=== PATIENT | male | born 1950 | race Caucasian/White ===

== ENCOUNTER → 2021-01-02 | Outpatient (CLI) | payer MEDICARE ==
[~2021-01-02] MED LIST: AMBIEN CR PO; AMLO5 PO; Aspir 8181 MG PO; CYCL10 PO; Cyclobenzaprine5 MG PO; KETO10 PO; METO50ER; Norco 5-325 Ta1 EACH PO; ROSU10TA; SIMV10 PO; TRAZ50; TRIHYD253B
== END | disposition home or self-care (01) ==
LOC: LAB SHORT 07:41
DX: L82.1 Other seborrheic keratosis (principal)
CPT/HCPCS: 88305

== ENCOUNTER → 2022-12-17 | Outpatient (CLI) | payer MEDICARE ==
[2022-12-17 13:39] LABS: Source, Urine Voided
[2022-12-17 15:12] LABS: Appearance, Urine Clear (Clear); Bilirubin, Urine Neg (Neg); Blood, Urine Neg (Neg); Glucose Qualitative, Urine Neg (Neg); Ketones, Urine Neg (Neg); Leukocyte Esterase, Urine Neg (Neg); Nitrite, Urine Neg (Neg); Protein, Urine 2+ (Neg); Specific Gravity, Urine 1.015 (1.003-1.022); Urobilinogen, Urine 1+ (Normal)
[2022-12-17 16:16] LABS: Color, Urine Yellow (P-Yellow)
[2022-12-17 16:26] LABS: Squamous Epithelial Cells Few /hpf (Few)
[2022-12-17 16:28] LABS: Bacteria Few /hpf
== END | disposition home or self-care (01) ==
LOC: LAB 11:00 → LAB SHORT 11:00
PROVIDERS: Family Medicine
DX: R31.9 Hematuria, unspecified (principal)
CPT/HCPCS: 81001